=== PATIENT | female | born 1995 | race African-American/Black ===

== ENCOUNTER 2016-09-01 18:43 | Emergency (ER) | payer OTHER ==
[~2016-09-01] VITALS: Ht 165.1 cm; Wt 68.0 kg
[2016-09-01 19:00] VITALS: BP 107/59
== END 2016-09-02 00:21 | disposition left against medical advice (07) ==
LOC: ER 18:44
DX: R10.9 Unspecified abdominal pain (principal); R11.0 Nausea; R19.7 Diarrhea, unspecified; Z98.890 Other specified postprocedural states

== ENCOUNTER 2017-02-27 10:21 | Emergency (ER) | payer OTHER ==
[~2017-02-27] VITALS: Ht 167.6 cm; Wt 114.0 kg
[2017-02-27] MEDS ORDERED: KETOROLAC 60MG/2ML VIAL IM ONE (11:30)
[2017-02-27 14:12] VITALS: BP 109/61
== END 2017-02-27 14:30 | disposition home or self-care (01) ==
LOC: ER 10:31
DX: M54.5 Low back pain (principal)
CPT/HCPCS: 81025; 96372; 99283; J1885; Z7610

== ENCOUNTER 2017-12-27 21:43 | Emergency (ER) | payer OTHER ==
[~2017-12-27] VITALS: Ht 165.1 cm; Wt 91.0 kg
[2017-12-27] MEDS ORDERED: ACETAMINOPHEN 500MG TABLET PO ONE (23:00)
[2017-12-27] MEDS ORDERED: IBUPROFEN 600MG TABLET PO ONE (23:00)
[2017-12-27 23:16] VITALS: BP 119/67
== END 2017-12-27 23:17 | disposition home or self-care (01) ==
LOC: ER 21:43
DX: R51 Headache (principal); Z98.890 Other specified postprocedural states; V43.62XA Car passenger injured in collision with other type car in traffic accident, initial encounter; Y93.89 Activity, other specified; Y92.488 Other paved roadways as the place of occurrence of the external cause
CPT/HCPCS: 99283

== ENCOUNTER 2019-01-15 16:57 | Emergency (ER) | payer MEDICAID, OTHER ==
[~2019-01-15] VITALS: Ht 167.6 cm; Wt 143.0 kg
[2019-01-15] MEDS ORDERED: HYDROCODONE/ACETAMINOPHEN 5/325MG TABLET PO ONE (17:45)
[2019-01-15 19:17] VITALS: BP 150/69
== END 2019-01-15 19:18 | disposition home or self-care (01) ==
LOC: ER 16:57
DX: S93.692A Other sprain of left foot, initial encounter (principal); S90.32XA Contusion of left foot, initial encounter; X50.1XXA Overexertion from prolonged static or awkward postures, initial encounter; Y93.89 Activity, other specified; Y92.89 Other specified places as the place of occurrence of the external cause; Y99.8 Other external cause status; D64.9 Anemia, unspecified; Z98.890 Other specified postprocedural states
CPT/HCPCS: 73600; 73620; 99283

== ENCOUNTER 2019-02-14 19:41 | Emergency (ER) | payer MEDICAID ==
[~2019-02-14] VITALS: Ht 167.6 cm; Wt 142.3 kg
[2019-02-14] MEDS ORDERED: ACETAMINOPHEN 325MG TABLET PO STA (20:55)
[2019-02-14] MEDS ORDERED: KETOROLAC 30MG/ML VIAL IV STA (20:55)
[2019-02-14] MEDS ORDERED: SODIUM CHLORIDE 0.9% 1,000 ML IV ONE ×2 (20:55→22:18)
[2019-02-14 21:28] LABS: BASOPHILS % 0.2 % (0.0-2.0); CHLORIDE 104 mEq/L (98-107); EOSINOPHILS % 0.7 % (0.0-5.0); HEMATOCRIT. 36.3 % (36.0-48.0); HEMOGLOBIN. 11.4 g/dL (12.0-16.0); LYMPHOCYTES % 24.1 % (20.0-50.0); MEAN CORPUSCULAR HEMOGLOBIN 22.1 pg (28.0-32.0); MEAN CORPUSCULAR VOLUME 70.5 fL (81.0-99.0); MEAN PLATELET VOLUME 9.5 fl (7.4-10.4); MONOCYTES % 8.7 % (2.0-8.0); NEUTROPHILS % 66.3 % (40.0-76.0); PLATELET 233 x1000/uL (130-400); RED BLOOD CELL COUNT 5.15 mill/uL (4.2-5.4); RED CELL DISTRIBUTION WIDTH 17.6 % (11.6-14.6)
[2019-02-14 21:32] LABS: CLARITY URINE CLOUDY (CLEAR); COLOR URINE YELLOW (YELLOW); KETONES URINE TRACE (NEGATIVE); LEUKOCYTE ESTERASE URINE 1+ (NEGATIVE); NITRITE URINE NEGATIVE (NEGATIVE); OCCULT BLOOD URINE 2+ (NEGATIVE); PH URINE 6.5 (4.5-8.0); PROTEIN URINE 1+ (NEGATIVE); SPECIFIC GRAVITY URINE 1.019 (1.005-1.030); UROBILINOGEN URINE 0.2 E.U./dL (0.2-1.0)
[2019-02-15 03:07] VITALS: BP 131/74
[2019-02-15 09:17] LABS: *BARBITURATES SCREEN URINE NEGATIVE (NEGATIVE); *BENZODIAZEPINES SCREEN URINE NEGATIVE (NEGATIVE); *COCAINE SCREEN URINE NEGATIVE (NEGATIVE); METHADONE URINE SCREEN NEGATIVE (NEGATIVE)
[2019-02-15 09:18] LABS: *AMPHETAMINES SCREEN URINE NEGATIVE (NEGATIVE); OPIATES URINE SCREEN NEGATIVE (NEGATIVE); PHENCYCLIDINE URINE SCREEN NEGATIVE (NEGATIVE)
[2019-02-15 09:52] LABS: CANNABINOID URINE SCREEN PRESUMTIVE POSITIVE (NEGATIVE)
== END 2019-02-15 03:11 | disposition home or self-care (01) ==
LOC: ER 19:41
DX: B34.9 Viral infection, unspecified (principal); R00.0 Tachycardia, unspecified; R03.0 Elevated blood-pressure reading, without diagnosis of hypertension; F12.90 Cannabis use, unspecified, uncomplicated
CPT/HCPCS: 36415; 71045; 80053; 80305; 81003; 81025; 84443; 85025; 93005; 96374; 99284; J1885; J7030

== ENCOUNTER 2023-05-12 09:15 | Emergency (ER) | payer MEDICAID ==
[~2023-05-12] VITALS: Ht 170.2 cm; Wt 79.4 kg
[2023-05-12 09:41] VITALS: O2SAT 100
[2023-05-12 10:40] LABS: CLARITY URINE CLOUDY (CLEAR); COLOR URINE DARK YELLOW (YELLOW); GLUCOSE URINE NEGATIVE (NEGATIVE); KETONES URINE TRACE (NEGATIVE); LEUKOCYTE ESTERASE URINE 2+ (NEGATIVE); NITRITE URINE NEGATIVE (NEGATIVE); OCCULT BLOOD URINE NEGATIVE (NEGATIVE); PH URINE 5.5 (4.5-8.0); PROTEIN URINE TRACE (NEGATIVE); SPECIFIC GRAVITY URINE 1.029 (1.005-1.030)
[2023-05-12 11:13] LABS: BASOPHILS % 0.6 % (0.0-2.0); EOSINOPHILS % 1.4 % (0.0-5.0); HEMOGLOBIN. 11.4 g/dL (12.0-16.0); LYMPHOCYTES % 39.4 % (20.0-50.0); MEAN CORPUSCULAR HEMOGLOBIN 25.3 pg (28.0-32.0); MEAN CORPUSCULAR HGB CONC 30.9 g/dL (31.0-37.0); MEAN CORPUSCULAR VOLUME 81.9 fL (81.0-99.0); MEAN PLATELET VOLUME 9.1 fl (7.4-10.4); MONOCYTES % 7.5 % (2.0-8.0); NEUTROPHILS % 51.1 % (40.0-76.0); PLATELET 359 x1000/uL (130-400); RED BLOOD CELL COUNT 4.52 mill/uL (4.2-5.4); RED CELL DISTRIBUTION WIDTH 19.2 % (11.6-14.6); WHITE BLOOD COUNT 6.5 x1000/uL (4.5-11.0)
[2023-05-12 11:54] LABS: ALANINE AMINOTRANSFERASE 13 IU/L (10-49); ALBUMIN 4.3 g/dL (3.2-4.8); ASPARTATE AMINOTRANSFERASE 20 IU/L (<34); BILIRUBIN TOTAL 0.5 mg/dL (0.1-1.0); CALCIUM 9.4 mg/dL (8.7-10.4); CARBON DIOXIDE 26 mEq/L (21-32); CHLORIDE 106 mEq/L (98-107); CREATININE 0.7 mg/dL (0.6-1.0); GLUCOSE 76 mg/dL (70-105); POTASSIUM 4.1 mEq/L (3.5-5.1); PROTEIN TOTAL 7.8 g/dL (6.0-8.3); SODIUM 139 mEq/L (136-145); UREA NITROGEN BLOOD 11 mg/dL (9-23)
[2023-05-12 12:23] LABS: MUCUS URINE 4+ /lpf (< = 2+); SQUAMOUS EPITHELIAL CELL URINE 3+ /lpf (RARE/1+)
[2023-05-12 12:25] LABS: CALCIUM OXALATE CRYSTALS URINE 1+ /lpf; WBC URINE 25-50 /hpf (0-2)
[2023-05-12 12:26] LABS: BACTERIA URINE 2+; TRICHOMONAS URINE RARE
[2023-05-12] MEDS ORDERED: NITR100C MT (13:14)
[2023-05-12 14:19] VITALS: BP 108/77; PULSE 68; RESP 16; TEMP 98.7
== END 2023-05-12 14:20 | disposition home or self-care (01) ==
LOC: ER 09:15
DX: N39.0 Urinary tract infection, site not specified (principal); J06.9 Acute upper respiratory infection, unspecified; F12.10 Cannabis abuse, uncomplicated; Z98.890 Other specified postprocedural states; Z20.822 Contact with and (suspected) exposure to COVID-19
CPT/HCPCS: 36415; 80053; 81003; 81025; 85025; 87426; 87804; 99283

== ENCOUNTER 2023-08-25 08:42 | Emergency (ER) | payer MEDICAID ==
[~2023-08-25] VITALS: Ht 170.2 cm; Wt 81.0 kg
[~2023-08-25 08:42] MED LIST: NITR100C MT
[2023-08-25 09:06] VITALS: O2SAT 99
[2023-08-25 09:29] LABS: CARBON DIOXIDE 26 mEq/L (21-32); CHLORIDE 106 mEq/L (98-107); POTASSIUM 4.1 mEq/L (3.5-5.1); SODIUM 138 mEq/L (136-145)
[2023-08-25 09:30] LABS: BASOPHILS % 0.2 % (0.0-2.0); CALCIUM 8.8 mg/dL (8.7-10.4); DIFFERENTIAL COMMENT 0; EOSINOPHILS % 1.3 % (0.0-5.0); HEMATOCRIT. 31.7 % (36.0-48.0); HEMOGLOBIN. 10.1 g/dL (12.0-16.0); LYMPHOCYTES % 30.2 % (20.0-50.0); MEAN CORPUSCULAR HEMOGLOBIN 24.8 pg (28.0-32.0); MEAN CORPUSCULAR HGB CONC 31.8 g/dL (31.0-37.0); MEAN CORPUSCULAR VOLUME 78.2 fL (81.0-99.0); MEAN PLATELET VOLUME 9.4 fl (7.4-10.4); MONOCYTES % 5.7 % (2.0-8.0); NEUTROPHILS % 62.6 % (40.0-76.0); PLATELET 305 x1000/uL (130-400); RED BLOOD CELL COUNT 4.06 mill/uL (4.2-5.4); RED CELL DISTRIBUTION WIDTH 17.8 % (11.6-14.6)
[2023-08-25 09:35] LABS: CREATININE 0.7 mg/dL (0.6-1.0); GLUCOSE 90 mg/dL (70-105); UREA NITROGEN BLOOD 12 mg/dL (9-23)
[2023-08-25 09:37] LABS: ALANINE AMINOTRANSFERASE 9 IU/L (10-49); ALBUMIN 4.6 g/dL (3.2-4.8); ASPARTATE AMINOTRANSFERASE 17 IU/L (<34); BILIRUBIN DIRECT 0.2 mg/dL (<=3.0); BILIRUBIN TOTAL 0.6 mg/dL (0.1-1.0); PROTEIN TOTAL 7.7 g/dL (6.0-8.3)
[2023-08-25 09:39] LABS: CLARITY URINE CLEAR (CLEAR); COLOR URINE YELLOW (YELLOW); GLUCOSE URINE NEGATIVE (NEGATIVE); KETONES URINE NEGATIVE (NEGATIVE); LEUKOCYTE ESTERASE URINE 1+ (NEGATIVE); NITRITE URINE NEGATIVE (NEGATIVE); OCCULT BLOOD URINE NEGATIVE (NEGATIVE); PH URINE 6.5 (4.5-8.0); PROTEIN URINE NEGATIVE (NEGATIVE); SPECIFIC GRAVITY URINE 1.026 (1.005-1.030)
[2023-08-25 09:50] LABS: HCG SCREEN POSITIVE
[2023-08-25 10:02] LABS: MUCUS URINE 2+ /lpf (< = 2+); SQUAMOUS EPITHELIAL CELL URINE 2+ /lpf (RARE/1+)
[2023-08-25 10:04] LABS: BACTERIA URINE TRACE; CALCIUM OXALATE CRYSTALS URINE 1+ /lpf; RBC URINE 0-2 /hpf (0-2); WBC URINE 0-2 /hpf (0-2)
[2023-08-25] MEDS: ACETAMINOPHEN 325MG TABLET PO PRN (10:36)
[2023-08-25] MEDS ORDERED: TOPUD PO (11:16)
[2023-08-25 11:36] VITALS: BP 110/78; PULSE 79; RESP 16; TEMP 98.2
== END 2023-08-25 11:41 | disposition home or self-care (01) ==
LOC: ER 08:42
DX: O20.0 Threatened abortion (principal); F12.10 Cannabis abuse, uncomplicated; D64.9 Anemia, unspecified; Z98.890 Other specified postprocedural states; Z3A.01 Less than 8 weeks gestation of pregnancy
CPT/HCPCS: 36415; 76801; 80048; 80076; 81003; 84702; 84703; 85025; 86850; 86900; 99284

== ENCOUNTER 2024-01-02 12:33 | Emergency (ER) | payer MEDICAID ==
[~2024-01-02] VITALS: Ht 170.2 cm; Wt 86.5 kg
[~2024-01-02 12:33] MED LIST changes: +TOPUD PO
[2024-01-02 12:36] VITALS: TEMP 98.7; O2SAT 99
[2024-01-02 14:08] LABS: BASOPHILS % 0.4 % (0.0-2.0); DIFFERENTIAL COMMENT 0; EOSINOPHILS % 0.3 % (0.0-5.0); HEMATOCRIT. 29.9 % (36.0-48.0); HEMOGLOBIN. 9.5 g/dL (12.0-16.0); LYMPHOCYTES % 20.3 % (20.0-50.0); MEAN CORPUSCULAR HEMOGLOBIN 24.3 pg (28.0-32.0); MEAN CORPUSCULAR HGB CONC 31.6 g/dL (31.0-37.0); MEAN CORPUSCULAR VOLUME 76.8 fL (81.0-99.0); MEAN PLATELET VOLUME 8.9 fl (7.4-10.4); MONOCYTES % 6.1 % (2.0-8.0); NEUTROPHILS % 72.9 % (40.0-76.0); PLATELET 358 x1000/uL (130-400); RED BLOOD CELL COUNT 3.89 mill/uL (4.2-5.4); WHITE BLOOD COUNT 7.4 x1000/uL (4.5-11.0)
[2024-01-02 14:13] LABS: CHLORIDE 107 mEq/L (98-107); POTASSIUM 4.3 mEq/L (3.5-5.1); SODIUM 140 mEq/L (136-145)
[2024-01-02 14:14] LABS: CARBON DIOXIDE 27 mEq/L (21-32)
[2024-01-02 14:15] LABS: CALCIUM 9.2 mg/dL (8.7-10.4)
[2024-01-02 14:19] LABS: CREATININE 0.7 mg/dL (0.6-1.0); GLUCOSE 78 mg/dL (70-105)
[2024-01-02 14:20] LABS: UREA NITROGEN BLOOD 7 mg/dL (9-23)
[2024-01-02 14:21] LABS: ALANINE AMINOTRANSFERASE 12 IU/L (10-49); ALBUMIN 4.4 g/dL (3.2-4.8); ASPARTATE AMINOTRANSFERASE 18 IU/L (<34)
[2024-01-02 14:22] LABS: BILIRUBIN DIRECT 0.2 mg/dL (<=3.0); BILIRUBIN TOTAL 0.5 mg/dL (0.1-1.0); ETHANOL BLOOD < 10 mg/dL (<10); PROTEIN TOTAL 7.3 g/dL (6.0-8.3)
[2024-01-02 15:45] VITALS: BP 125/82; PULSE 85; RESP 15; O2SAT 98
== END 2024-01-02 15:50 | disposition home or self-care (01) ==
LOC: ER 13:06
DX: D64.9 Anemia, unspecified (principal); R53.1 Weakness; F15.10 Other stimulant abuse, uncomplicated
CPT/HCPCS: 36415; 80048; 80076; 80320; 85025; 99283; G0480

== ENCOUNTER 2024-01-15 00:34 | Emergency (ER) | payer MEDICAID ==
[~2024-01-15] VITALS: Ht 167.6 cm; Wt 84.0 kg
[2024-01-15 00:55] VITALS: O2SAT 100
[2024-01-15 02:00] LABS: CHLORIDE 108 mEq/L (98-107); SODIUM 139 mEq/L (136-145)
[2024-01-15 02:01] LABS: CARBON DIOXIDE 26 mEq/L (21-32)
[2024-01-15 02:02] LABS: CALCIUM 8.7 mg/dL (8.7-10.4)
[2024-01-15 02:06] LABS: CREATININE 0.7 mg/dL (0.6-1.0); GLUCOSE 89 mg/dL (70-105); UREA NITROGEN BLOOD 10 mg/dL (9-23)
[2024-01-15 02:08] LABS: ALANINE AMINOTRANSFERASE 10 IU/L (10-49); ALBUMIN 4.3 g/dL (3.2-4.8); ASPARTATE AMINOTRANSFERASE 19 IU/L (<34)
[2024-01-15 02:09] LABS: BILIRUBIN TOTAL 0.3 mg/dL (0.1-1.0); PROTEIN TOTAL 7.3 g/dL (6.0-8.3)
[2024-01-15 02:15] LABS: BILIRUBIN DIRECT < 0.1 mg/dL (<=3.0)
[2024-01-15 02:26] LABS: BASOPHILS % 0.3 % (0.0-2.0); DIFFERENTIAL COMMENT 0; EOSINOPHILS % 0.8 % (0.0-5.0); HEMOGLOBIN. 9.5 g/dL (12.0-16.0); LYMPHOCYTES % 17.8 % (20.0-50.0); MEAN CORPUSCULAR HEMOGLOBIN 23.5 pg (28.0-32.0); MEAN CORPUSCULAR HGB CONC 29.7 g/dL (31.0-37.0); MEAN CORPUSCULAR VOLUME 79.1 fL (81.0-99.0); MEAN PLATELET VOLUME 9.7 fl (7.4-10.4); MONOCYTES % 5.8 % (2.0-8.0); NEUTROPHILS % 75.3 % (40.0-76.0); PLATELET 348 x1000/uL (130-400); RED BLOOD CELL COUNT 4.04 mill/uL (4.2-5.4); RED CELL DISTRIBUTION WIDTH 18.7 % (11.6-14.6); WHITE BLOOD COUNT 11.3 x1000/uL (4.5-11.0)
[2024-01-15 02:56] LABS: HCG SCREEN NEGATIVE
[2024-01-15] MEDS: SODIUM CHLORIDE 0.9% 1,000 ML IV ONE (05:07)
[2024-01-15] MEDS: ONDANSETRON HCL 4MG/2ML INJ IV ONE (05:07)
[2024-01-15] MEDS: ACETAMINOPHEN 1000MG/100ML 100 ML IV ONE (05:07)
[2024-01-15] MEDS: MAGNESIUM/ALUMINUM HYDROXIDE/SIMETHICONE 30ML UDC PO ONE (05:08)
[2024-01-15] MEDS ORDERED: ONDA4TAB50 MT (05:44)
[2024-01-15] MEDS ORDERED: ACET-2708 MT (05:44)
[2024-01-15] MEDS ORDERED: MAG355OR21 MT (05:44)
[2024-01-15 05:56] VITALS: BP 112/70; PULSE 81; RESP 16; TEMP 36.44736; O2SAT 100
== END 2024-01-15 06:13 | disposition home or self-care (01) ==
LOC: ER 00:34
DX: B34.9 Viral infection, unspecified (principal); D64.9 Anemia, unspecified; F15.10 Other stimulant abuse, uncomplicated; Z00.00 Encounter for general adult medical examination without abnormal findings; Z79.899 Other long term (current) drug therapy; Z98.890 Other specified postprocedural states
CPT/HCPCS: 80076; 80048; 84703; 85025; 36415; 96365; 96375; 99284; J2405; J7030; Z7610 ×2; J0131

== ENCOUNTER 2024-02-07 12:40 | Emergency (ER) | payer MEDICAID ==
[~2024-02-07] VITALS: Ht 170.2 cm; Wt 81.0 kg
[~2024-02-07 12:40] MED LIST changes: +ACET-2708 MT; +MAG355OR21 MT; +ONDA4TAB50 MT
[2024-02-07 12:58] VITALS: TEMP 98.1; O2SAT 99
[2024-02-07 15:40] LABS: HEMATOCRIT 32.8 % (36.0-48.0); HEMOGLOBIN 10.2 g/dL (12.0-16.0); MEAN CORPUSCULAR HEMOGLOBIN 24.7 pg (28.0-32.0); MEAN CORPUSCULAR VOLUME 79.7 fL (81.0-99.0); PLATELET 349 x1000/uL (130-400); RED BLOOD CELL COUNT 4.12 mill/uL (4.2-5.4); RED CELL DISTRIBUTION WIDTH 19.7 % (11.6-14.6); WHITE BLOOD COUNT 6.4 x1000/uL (4.5-11.0)
[2024-02-07 15:48] LABS: CHLORIDE 111 mEq/L (98-107); POTASSIUM 4.3 mEq/L (3.5-5.1); SODIUM 142 mEq/L (136-145)
[2024-02-07 15:49] LABS: CARBON DIOXIDE 27 mEq/L (21-32)
[2024-02-07 15:54] LABS: CREATININE 0.7 mg/dL (0.6-1.0); GLUCOSE 79 mg/dL (70-105); HCG SCREEN NEGATIVE; UREA NITROGEN BLOOD 12 mg/dL (9-23)
[2024-02-07 16:19] LABS: TROPONIN I HIGH SENSITIVITY < 4 ng/L (3.0-34)
[2024-02-07 16:54] VITALS: BP 118/62; PULSE 62; RESP 16; O2SAT 98
== END 2024-02-07 16:54 | disposition home or self-care (01) ==
LOC: ER 12:40
DX: R07.9 Chest pain, unspecified (principal); F15.90 Other stimulant use, unspecified, uncomplicated; D64.9 Anemia, unspecified; Z98.890 Other specified postprocedural states; Z79.899 Other long term (current) drug therapy
CPT/HCPCS: 36415; 71045; 80048; 84484; 84703; 85027; 93005; 99285

== ENCOUNTER 2024-03-21 11:30 | Emergency (ER) | payer MEDICAID ==
[~2024-03-21] VITALS: Ht 167.6 cm; Wt 90.0 kg
[2024-03-21 11:35] VITALS: BP 136/84; TEMP 98.7; O2SAT 99
[2024-03-21 11:55] VITALS: PULSE 83; RESP 18; O2SAT 100
[2024-03-21] MEDS ORDERED: ONDANSETRON 4MG ODT PO STA (12:02)
[2024-03-21] MEDS ORDERED: PANTOPRAZOLE 40MG DR TABLET PO ONE (12:30)
[2024-03-21] MEDS ORDERED: MAGNESIUM/ALUMINUM HYDROXIDE/SIMETHICONE 30ML UDC PO ONE ×2 (12:30→13:45)
[2024-03-21 12:44] LABS: BASOPHILS % 0.4 % (0.0-2.0); EOSINOPHILS % 0.8 % (0.0-5.0); HEMOGLOBIN. 10.9 g/dL (12.0-16.0); LYMPHOCYTES % 28.1 % (20.0-50.0); MEAN CORPUSCULAR HEMOGLOBIN 25.1 pg (28.0-32.0); MEAN CORPUSCULAR HGB CONC 31.1 g/dL (31.0-37.0); MEAN CORPUSCULAR VOLUME 80.7 fL (81.0-99.0); MEAN PLATELET VOLUME 9.5 fl (7.4-10.4); MONOCYTES % 6.6 % (2.0-8.0); NEUTROPHILS % 64.1 % (40.0-76.0); PLATELET 325 x1000/uL (130-400); RED BLOOD CELL COUNT 4.34 mill/uL (4.2-5.4); RED CELL DISTRIBUTION WIDTH 18.3 % (11.6-14.6); WHITE BLOOD COUNT 9.8 x1000/uL (4.5-11.0)
[2024-03-21 12:50] LABS: CHLORIDE 107 mEq/L (98-107); POTASSIUM 4.6 mEq/L (3.5-5.1); SODIUM 142 mEq/L (136-145)
[2024-03-21 12:51] LABS: CALCIUM 9.5 mg/dL (8.7-10.4); CARBON DIOXIDE 26 mEq/L (21-32)
[2024-03-21 12:56] LABS: CREATININE 0.8 mg/dL (0.6-1.0); GLUCOSE 97 mg/dL (70-105); UREA NITROGEN BLOOD 12 mg/dL (9-23)
[2024-03-21 12:58] LABS: CLARITY URINE CLEAR (CLEAR); COLOR URINE DARK YELLOW (YELLOW); GLUCOSE URINE NEGATIVE (NEGATIVE); KETONES URINE TRACE (NEGATIVE); LEUKOCYTE ESTERASE URINE NEGATIVE (NEGATIVE); NITRITE URINE NEGATIVE (NEGATIVE); OCCULT BLOOD URINE NEGATIVE (NEGATIVE); PH URINE 6.5 (4.5-8.0); PROTEIN URINE NEGATIVE (NEGATIVE); SPECIFIC GRAVITY URINE 1.022 (1.005-1.030)
[2024-03-21 13:04] LABS: PROTHROMBIN TIME 11.4 sec (9.6-11.0)
[2024-03-21] MEDS: MAGNESIUM/ALUMINUM HYDROXIDE/SIMETHICONE 30ML UDC PO NR (14:09)
[2024-03-21] MEDS: PANTOPRAZOLE 40MG DR TABLET PO NR (14:09)
[2024-03-21] MEDS: ONDANSETRON 4MG ODT PO NR (14:09)
[2024-03-21] MEDS ORDERED: OMEP40CA20 MT (14:13)
== END 2024-03-21 14:25 | disposition home or self-care (01) ==
LOC: ER 11:30
DX: K92.0 Hematemesis (principal); D64.9 Anemia, unspecified; F15.90 Other stimulant use, unspecified, uncomplicated; Z90.3 Acquired absence of stomach [part of]; Z98.890 Other specified postprocedural states
CPT/HCPCS: 99284; 74176; 80048; 81003; 81025; 85025; 85610; 36415; 93005; Q0162

== ENCOUNTER 2024-06-23 20:40 | Emergency (ER) | payer MEDICAID ==
[~2024-06-23] VITALS: Ht 167.6 cm; Wt 93.0 kg
[~2024-06-23 20:40] MED LIST changes: +OMEP40CA20 MT
[2024-06-23 20:47] VITALS: O2SAT 98
[2024-06-23] MEDS ORDERED: ACETAMINOPHEN 325MG TABLET PO PRN (21:15)
[2024-06-23 21:42] LABS: BASOPHILS % 0.4 % (0.0-2.0); DIFFERENTIAL COMMENT 0; EOSINOPHILS % 1.1 % (0.0-5.0); LYMPHOCYTES % 32.9 % (20.0-50.0); MEAN CORPUSCULAR HGB CONC 31.3 g/dL (31.0-37.0); MEAN CORPUSCULAR VOLUME 79.9 fL (81.0-99.0); MEAN PLATELET VOLUME 9.3 fl (7.4-10.4); MONOCYTES % 6.4 % (2.0-8.0); NEUTROPHILS % 59.2 % (40.0-76.0); PLATELET 317 x1000/uL (130-400); RED BLOOD CELL COUNT 4.01 mill/uL (4.2-5.4); RED CELL DISTRIBUTION WIDTH 17.4 % (11.6-14.6); WHITE BLOOD COUNT 8.1 x1000/uL (4.5-11.0)
[2024-06-23 21:47] LABS: CHLORIDE 109 mEq/L (98-107); POTASSIUM 4.1 mEq/L (3.5-5.1); SODIUM 144 mEq/L (136-145)
[2024-06-23 21:48] LABS: CARBON DIOXIDE 27 mEq/L (21-32)
[2024-06-23 21:49] LABS: CALCIUM 9.2 mg/dL (8.7-10.4)
[2024-06-23 21:53] LABS: CREATININE 0.7 mg/dL (0.6-1.0); GLUCOSE 86 mg/dL (70-105)
[2024-06-23 21:54] LABS: B-HCG QUANTITATIVE 7 mIU/mL (<3); UREA NITROGEN BLOOD 13 mg/dL (9-23)
[2024-06-23 21:55] LABS: ALANINE AMINOTRANSFERASE 10 IU/L (10-49); ALBUMIN 4.1 g/dL (3.2-4.8); ASPARTATE AMINOTRANSFERASE 17 IU/L (<34)
[2024-06-23 21:56] LABS: BILIRUBIN TOTAL 0.3 mg/dL (0.1-1.0)
[2024-06-23 21:58] LABS: BILIRUBIN DIRECT < 0.1 mg/dL (<=3.0)
[2024-06-23 23:47] LABS: CLARITY URINE CLEAR (CLEAR); COLOR URINE YELLOW (YELLOW); GLUCOSE URINE NEGATIVE (NEGATIVE); KETONES URINE NEGATIVE (NEGATIVE); LEUKOCYTE ESTERASE URINE NEGATIVE (NEGATIVE); NITRITE URINE NEGATIVE (NEGATIVE); OCCULT BLOOD URINE 1+ (NEGATIVE); PROTEIN URINE NEGATIVE (NEGATIVE)
[2024-06-24 00:27] LABS: WBC URINE 0-2 /hpf (0-2)
[2024-06-24 00:28] LABS: BACTERIA URINE NONE SEEN; RBC URINE 0-2 /hpf (0-2); SQUAMOUS EPITHELIAL CELL URINE FEW /lpf (RARE/1+)
[2024-06-24 00:45] VITALS: BP 121/70; PULSE 74; RESP 18; TEMP 36.8; O2SAT 100
== END 2024-06-24 00:45 | disposition home or self-care (01) ==
LOC: ER 20:40
DX: O20.9 Hemorrhage in early pregnancy, unspecified (principal); O34.41 Maternal care for other abnormalities of cervix, first trimester; N89.8 Other specified noninflammatory disorders of vagina; Z98.890 Other specified postprocedural states; Z79.899 Other long term (current) drug therapy; Z3A.01 Less than 8 weeks gestation of pregnancy
CPT/HCPCS: 36415; 76801; 80048; 80076; 81003; 84702; 85025; 86850; 86900; 99284

== ENCOUNTER 2024-09-08 11:37 | Emergency (ER) | payer MEDICAID ==
[~2024-09-08] VITALS: Ht 167.6 cm; Wt 100.0 kg
[2024-09-08 11:39] VITALS: O2SAT 98
[2024-09-08 11:40] VITALS: BP 134/75; PULSE 89; RESP 18; TEMP 36.9; O2SAT 99
[2024-09-08 12:06] LABS: BASOPHILS % 0.4 % (0.0-2.0); DIFFERENTIAL COMMENT 0; EOSINOPHILS % 0.2 % (0.0-5.0); HEMATOCRIT. 33.8 % (36.0-48.0); LYMPHOCYTES % 17.4 % (20.0-50.0); MEAN CORPUSCULAR HEMOGLOBIN 24.8 pg (28.0-32.0); MEAN CORPUSCULAR HGB CONC 32.4 g/dL (31.0-37.0); MEAN CORPUSCULAR VOLUME 76.6 fL (81.0-99.0); MEAN PLATELET VOLUME 8.9 fl (7.4-10.4); MONOCYTES % 6.7 % (2.0-8.0); NEUTROPHILS % 75.3 % (40.0-76.0); PLATELET 365 x1000/uL (130-400); RED BLOOD CELL COUNT 4.41 mill/uL (4.2-5.4); RED CELL DISTRIBUTION WIDTH 17.5 % (11.6-14.6); WHITE BLOOD COUNT 9.2 x1000/uL (4.5-11.0)
[2024-09-08 12:34] LABS: CHLORIDE 107 mEq/L (98-107); POTASSIUM 4.4 mEq/L (3.5-5.1); SODIUM 141 mEq/L (136-145)
[2024-09-08 12:35] LABS: CALCIUM 9.2 mg/dL (8.7-10.4); CARBON DIOXIDE 25 mEq/L (21-32)
[2024-09-08 12:40] LABS: CREATININE 0.8 mg/dL (0.6-1.0); GLUCOSE 88 mg/dL (70-105); UREA NITROGEN BLOOD 7 mg/dL (9-23)
[2024-09-08 14:07] LABS: CLARITY URINE CLEAR (CLEAR); COLOR URINE YELLOW (YELLOW); GLUCOSE URINE NEGATIVE (NEGATIVE); KETONES URINE NEGATIVE (NEGATIVE); LEUKOCYTE ESTERASE URINE NEGATIVE (NEGATIVE); NITRITE URINE NEGATIVE (NEGATIVE); OCCULT BLOOD URINE NEGATIVE (NEGATIVE); PROTEIN URINE NEGATIVE (NEGATIVE); SPECIFIC GRAVITY URINE 1.019 (1.005-1.030)
[2024-09-08] MEDS: ONDANSETRON 4MG ODT PO ONE (14:43)
[2024-09-08] MEDS: ACETAMINOPHEN 325MG TABLET PO ONE (14:43)
[2024-09-08] MEDS ORDERED: TOPUD PO (15:18)
[2024-09-08] MEDS ORDERED: MAG355OR21 MT (15:18)
[2024-09-08] MEDS ORDERED: OMEP40CA20 MT (15:18)
[2024-09-08] MEDS ORDERED: ONDA-239 PO (15:18)
== END 2024-09-08 15:29 | disposition left against medical advice (07) ==
LOC: ER 11:38
DX: R11.2 Nausea with vomiting, unspecified (principal); Z79.899 Other long term (current) drug therapy; Z87.19 Personal history of other diseases of the digestive system; Z98.890 Other specified postprocedural states
CPT/HCPCS: 99283; 80048; 81003; 81025; 83690; 85025; 36415; Q0162

== ENCOUNTER 2024-11-22 02:39 | Emergency (ER) | payer MEDICAID ==
[~2024-11-22] VITALS: Ht 172.7 cm; Wt 91.0 kg
[~2024-11-22 02:39] MED LIST changes: +ONDA-239 PO
[2024-11-22 02:41] VITALS: TEMP 36.8; O2SAT 99
[2024-11-22] MEDS ORDERED: ACETAMINOPHEN 1000MG/100ML 100 ML IV ONE (03:15)
[2024-11-22 03:29] LABS: BASOPHILS % 0.7 % (0.0-2.0); EOSINOPHILS % 0.1 % (0.0-5.0); HEMATOCRIT. 33.5 % (36.0-48.0); HEMOGLOBIN. 10.5 g/dL (12.0-16.0); LYMPHOCYTES % 21.9 % (20.0-50.0); MEAN PLATELET VOLUME 10.1 fl (7.4-10.4); MONOCYTES % 4.9 % (2.0-8.0); NEUTROPHILS % 72.4 % (40.0-76.0); PLATELET 323 x1000/uL (130-400); RED BLOOD CELL COUNT 4.28 mill/uL (4.2-5.4); RED CELL DISTRIBUTION WIDTH 18.0 % (11.6-14.6)
[2024-11-22] MEDS: SODIUM CHLORIDE 0.9% 1,000 ML IV ONE (03:40)
[2024-11-22] MEDS: ONDANSETRON HCL 4MG/2ML INJ IV ONE (03:41)
[2024-11-22] MEDS: PANTOPRAZOLE SODIUM 40 MG/VIAL IV ONE (03:41)
[2024-11-22] MEDS: MAGNESIUM/ALUMINUM HYDROXIDE/SIMETHICONE 30ML UDC PO ONE (03:41)
[2024-11-22 03:50] LABS: HCG SCREEN NEGATIVE
[2024-11-22] MEDS: ACETAMINOPHEN 325MG TABLET PO ONE (03:53)
[2024-11-22] MEDS: VISCOUS LIDOCAINE 2% 15 ML UDC MM ONE (03:53)
[2024-11-22 04:06] LABS: CREATININE 0.8 mg/dL (0.6-1.0)
[2024-11-22 04:07] LABS: ETHANOL BLOOD < 10 mg/dL (<10); UREA NITROGEN BLOOD 8 mg/dL (9-23)
[2024-11-22 04:08] LABS: ASPARTATE AMINOTRANSFERASE 38 IU/L (<34)
[2024-11-22 04:09] LABS: BILIRUBIN DIRECT 0.1 mg/dL (<=3.0); BILIRUBIN TOTAL 0.4 mg/dL (0.1-1.0); PROTEIN TOTAL 8.2 g/dL (6.0-8.3)
[2024-11-22] MEDS ORDERED: IOHEXOL-300 100 ML BOTTLE ONE (04:58)
[2024-11-22 05:30] LABS: TROPONIN I HIGH SENSITIVITY 4 ng/L (3.0-34)
[2024-11-22 06:01] LABS: INR 1.1
[2024-11-22] MEDS ORDERED: PROT40 MT (06:21)
[2024-11-22] MEDS ORDERED: MAG355OR21 MT (06:21)
[2024-11-22] MEDS ORDERED: HYDROCODONE/ACETAMINOPHEN 5/325MG TABLET PO ONE (06:30)
[2024-11-22] MEDS ORDERED: ONDANSETRON 4MG ODT PO ONE (06:30)
[2024-11-22 06:43] VITALS: BP 116/71; PULSE 85; RESP 16; O2SAT 98
== END 2024-11-22 06:46 | disposition home or self-care (01) ==
LOC: ER 02:39 → CMPBEDREQ 19:23
DX: R10.13 Epigastric pain (principal); F14.10 Cocaine abuse, uncomplicated; D64.9 Anemia, unspecified; R06.02 Shortness of breath; Z00.00 Encounter for general adult medical examination without abnormal findings; Z79.899 Other long term (current) drug therapy; Z98.84 Bariatric surgery status; Z87.19 Personal history of other diseases of the digestive system
CPT/HCPCS: 80076; 80048; 80320; 84703; 83880; 83690; 85025; 85379; 85610; 85730; 84484; 36415; 71045; 74177; 93005; 96361; 96374; 96375; 99285; Q9967; J2405; J2470; J7030; A4606; G0480; J0131

== ENCOUNTER 2024-12-03 09:42 | Emergency (ER) | payer MEDICAID ==
[~2024-12-03] VITALS: Ht 167.6 cm; Wt 99.0 kg
[~2024-12-03 09:42] MED LIST changes: +PROT40 MT
[2024-12-03 10:04] VITALS: O2SAT 96
[2024-12-03 11:01] LABS: BASOPHILS % 0.4 % (0.0-2.0); EOSINOPHILS % 0.1 % (0.0-5.0); HEMATOCRIT. 33.0 % (36.0-48.0); HEMOGLOBIN. 10.4 g/dL (12.0-16.0); LYMPHOCYTES % 28.2 % (20.0-50.0); MEAN PLATELET VOLUME 9.1 fl (7.4-10.4); MONOCYTES % 5.3 % (2.0-8.0); NEUTROPHILS % 66.0 % (40.0-76.0); PLATELET 362 x1000/uL (130-400); RED BLOOD CELL COUNT 4.38 mill/uL (4.2-5.4); RED CELL DISTRIBUTION WIDTH 17.2 % (11.6-14.6)
[2024-12-03 11:20] LABS: CREATININE 0.7 mg/dL (0.6-1.0); UREA NITROGEN BLOOD 6 mg/dL (9-23)
[2024-12-03 11:21] LABS: TROPONIN I HIGH SENSITIVITY < 4 ng/L (3.0-34)
[2024-12-03 11:22] LABS: ASPARTATE AMINOTRANSFERASE 15 IU/L (<34); BILIRUBIN TOTAL 0.4 mg/dL (0.1-1.0)
[2024-12-03 11:23] LABS: PROTEIN TOTAL 7.8 g/dL (6.0-8.3)
[2024-12-03] MEDS: KETOROLAC 15MG/ML VIAL IM ONE (11:32)
[2024-12-03] MEDS: ONDANSETRON 4MG ODT PO ONE (11:33)
[2024-12-03 11:34] VITALS: TEMP 36.8; O2SAT 98
[2024-12-03 11:34] LABS: ASPARTATE AMINOTRANSFERASE 16 IU/L (<34); BILIRUBIN DIRECT < 0.1 mg/dL (<=3.0); BILIRUBIN TOTAL 0.3 mg/dL (0.1-1.0)
[2024-12-03 11:35] LABS: PROTEIN TOTAL 7.4 g/dL (6.0-8.3)
[2024-12-03 12:08] LABS: HCG SCREEN NEGATIVE
[2024-12-03 13:00] LABS: CLARITY URINE CLEAR (CLEAR); COLOR URINE YELLOW (YELLOW); GLUCOSE URINE NEGATIVE (NEGATIVE); KETONES URINE NEGATIVE (NEGATIVE); LEUKOCYTE ESTERASE URINE NEGATIVE (NEGATIVE); NITRITE URINE NEGATIVE (NEGATIVE); OCCULT BLOOD URINE NEGATIVE (NEGATIVE); PH URINE 7.5 (4.5-8.0); PROTEIN URINE NEGATIVE (NEGATIVE); SPECIFIC GRAVITY URINE 1.008 (1.005-1.030); UROBILINOGEN URINE 0.2 E.U./dL (0.2-1.0)
[2024-12-03 13:01] VITALS: BP 126/70; PULSE 80; RESP 20; TEMP 98.3
[2024-12-03] MEDS ORDERED: TOPUD MT (13:24)
[2024-12-03] MEDS ORDERED: PROT40 MT (13:24)
[2024-12-03] MEDS ORDERED: ONDA4TAB50 MT (13:24)
[2024-12-03 13:54] LABS: INFLUENZA TYPE A Presumptive Negative (Pres. Neg.)
[2024-12-03 13:55] LABS: INFLUENZA TYPE B Presumptive Negative (Pres. Neg.)
== END 2024-12-03 13:45 | disposition home or self-care (01) ==
LOC: ER 09:42 → CANBEDREQ 13:29 → ER 13:45
DX: R10.9 Unspecified abdominal pain (principal); R51.9 Headache, unspecified; R07.89 Other chest pain; F10.90 Alcohol use, unspecified, uncomplicated; Z79.899 Other long term (current) drug therapy; Z87.19 Personal history of other diseases of the digestive system; Z98.84 Bariatric surgery status; Z20.822 Contact with and (suspected) exposure to COVID-19; Y90.9 Presence of alcohol in blood, level not specified
CPT/HCPCS: 80076; 80053; 81003; 81025; 84703; 83690; 85025; 84484; 87804 ×2; 36415; 71045; 74176; 93005; 96372; 99285; 87426; Q0162; J1885; Z7610

== ENCOUNTER 2024-12-10 05:26 | Emergency (ER) | payer MEDICAID ==
[~2024-12-10] VITALS: Ht 167.6 cm; Wt 99.2 kg
[~2024-12-10 05:26] MED LIST changes: +TOPUD MT
[2024-12-10 05:32] VITALS: O2SAT 100
[2024-12-10 06:30] LABS: BASOPHILS % 0.6 % (0.0-2.0); EOSINOPHILS % 1.1 % (0.0-5.0); HEMATOCRIT. 32.7 % (36.0-48.0); HEMOGLOBIN. 10.1 g/dL (12.0-16.0); LYMPHOCYTES % 32.8 % (20.0-50.0); MEAN PLATELET VOLUME 9.6 fl (7.4-10.4); MONOCYTES % 7.3 % (2.0-8.0); NEUTROPHILS % 58.2 % (40.0-76.0); PLATELET 360 x1000/uL (130-400); RED BLOOD CELL COUNT 4.36 mill/uL (4.2-5.4); RED CELL DISTRIBUTION WIDTH 17.3 % (11.6-14.6)
[2024-12-10] MEDS: SODIUM CHLORIDE 0.9% 1,000 ML IV ONE (06:35)
[2024-12-10] MEDS: ONDANSETRON HCL 4MG/2ML INJ IV ONE (06:36)
[2024-12-10] MEDS: MORPHINE SULFATE 4 MG/ML INJ (FOR IV/IM USE) IV ONE (06:37)
[2024-12-10 06:39] LABS: CREATININE 0.8 mg/dL (0.6-1.0)
[2024-12-10 06:40] LABS: UREA NITROGEN BLOOD 12 mg/dL (9-23)
[2024-12-10 06:41] LABS: HCG SCREEN NEGATIVE; TROPONIN I HIGH SENSITIVITY 16 ng/L (3.0-34)
[2024-12-10] MEDS ORDERED: ONDA4TAB50 MT (07:11)
[2024-12-10] MEDS ORDERED: POLY17PO3 MT (07:11)
[2024-12-10 08:36] VITALS: BP 113/54; PULSE 72; RESP 16; TEMP 36.6; O2SAT 99
== END 2024-12-10 08:39 | disposition home or self-care (01) ==
LOC: ER 05:26
DX: K29.70 Gastritis, unspecified, without bleeding (principal); F14.90 Cocaine use, unspecified, uncomplicated; F41.9 Anxiety disorder, unspecified; F32.A Depression, unspecified; Z98.890 Other specified postprocedural states; Z79.899 Other long term (current) drug therapy
CPT/HCPCS: 80048; 81025; 84703; 85025; 85379; 84484; 36415; 71045; 93005; 96361; 96374; 96375; 99285; J2405; J2270; J7030; Z7610

== ENCOUNTER 2025-02-03 00:05 | Emergency (ER) | payer MEDICAID ==
[~2025-02-03] VITALS: Ht 167.6 cm; Wt 102.0 kg
[~2025-02-03 00:05] MED LIST changes: +POLY17PO3 MT
[2025-02-03 00:29] VITALS: TEMP 36.8; O2SAT 100
[2025-02-03] MEDS: ONDANSETRON 4MG ODT PO ONE (01:33)
[2025-02-03] MEDS: ACETAMINOPHEN 325MG TABLET PO ONE (01:34)
[2025-02-03 01:36] LABS: BASOPHILS % 0.3 % (0.0-2.0); EOSINOPHILS % 1.2 % (0.0-5.0); HEMATOCRIT. 31.4 % (36.0-48.0); HEMOGLOBIN. 9.7 g/dL (12.0-16.0); LYMPHOCYTES % 25.5 % (20.0-50.0); MEAN PLATELET VOLUME 9.2 fl (7.4-10.4); MONOCYTES % 8.1 % (2.0-8.0); NEUTROPHILS % 64.9 % (40.0-76.0); PLATELET 359 x1000/uL (130-400); RED BLOOD CELL COUNT 4.18 mill/uL (4.2-5.4); RED CELL DISTRIBUTION WIDTH 17.1 % (11.6-14.6)
[2025-02-03 01:49] LABS: CLARITY URINE CLEAR (CLEAR); COLOR URINE YELLOW (YELLOW); GLUCOSE URINE NEGATIVE (NEGATIVE); KETONES URINE TRACE (NEGATIVE); LEUKOCYTE ESTERASE URINE NEGATIVE (NEGATIVE); NITRITE URINE NEGATIVE (NEGATIVE); OCCULT BLOOD URINE 2+ (NEGATIVE); PH URINE 6.0 (4.5-8.0); PROTEIN URINE TRACE (NEGATIVE); SPECIFIC GRAVITY URINE 1.025 (1.005-1.030); UROBILINOGEN URINE 0.2 E.U./dL (0.2-1.0)
[2025-02-03 01:52] LABS: CREATININE 0.7 mg/dL (0.6-1.0); UREA NITROGEN BLOOD 12 mg/dL (9-23)
[2025-02-03 01:54] LABS: ASPARTATE AMINOTRANSFERASE 16 IU/L (<34); BILIRUBIN DIRECT < 0.1 mg/dL (<=3.0); BILIRUBIN TOTAL 0.4 mg/dL (0.1-1.0)
[2025-02-03 01:55] LABS: PROTEIN TOTAL 7.3 g/dL (6.0-8.3)
[2025-02-03] MEDS ORDERED: FERR236T3 MT (02:42)
[2025-02-03] MEDS ORDERED: PANT20TA17 MT (02:42)
[2025-02-03 02:56] LABS: HCG SCREEN NEGATIVE
[2025-02-03] MEDS ORDERED: MAG-55 MT (03:14)
[2025-02-03 03:24] VITALS: BP 111/54; PULSE 67; RESP 18; O2SAT 100
[2025-02-03 03:41] LABS: SQUAMOUS EPITHELIAL CELL URINE FEW /lpf (RARE/1+)
[2025-02-03 03:43] LABS: BACTERIA URINE NONE SEEN; WBC URINE 0-2 /hpf (0-2)
== END 2025-02-03 03:28 | disposition home or self-care (01) ==
LOC: ER 00:18
DX: R10.13 Epigastric pain (principal); R11.2 Nausea with vomiting, unspecified; Z98.890 Other specified postprocedural states; Z79.899 Other long term (current) drug therapy
CPT/HCPCS: 99284; 76705; 80076; 80048; 81003; 81025; 84703; 83690; 85025; 36415; Q0162

== ENCOUNTER 2025-04-12 21:50 | Emergency (ER) | payer MEDICAID ==
[~2025-04-12] VITALS: Ht 167.6 cm; Wt 102.0 kg
[~2025-04-12 21:50] MED LIST changes: +FERR236T3 MT; +MAG-55 MT; +PANT20TA17 MT
[2025-04-12 21:57] VITALS: O2SAT 99
[2025-04-12 22:38] LABS: CLARITY URINE CLEAR (CLEAR); COLOR URINE YELLOW (YELLOW); GLUCOSE URINE NEGATIVE (NEGATIVE); KETONES URINE TRACE (NEGATIVE); LEUKOCYTE ESTERASE URINE 2+ (NEGATIVE); NITRITE URINE NEGATIVE (NEGATIVE); OCCULT BLOOD URINE NEGATIVE (NEGATIVE); PH URINE 7.0 (4.5-8.0); PROTEIN URINE 1+ (NEGATIVE); SPECIFIC GRAVITY URINE 1.034 (1.005-1.030); UROBILINOGEN URINE 1.0 E.U./dL (0.2-1.0)
[2025-04-12 22:51] LABS: BACTERIA URINE 1+; RBC URINE 0-2 /hpf (0-2); SQUAMOUS EPITHELIAL CELL URINE FEW /lpf (RARE/1+)
[2025-04-13 00:14] LABS: BASOPHILS % 0.3 % (0.0-2.0); EOSINOPHILS % 1.0 % (0.0-5.0); HEMATOCRIT. 34.6 % (36.0-48.0); HEMOGLOBIN. 10.5 g/dL (12.0-16.0); LYMPHOCYTES % 27.7 % (20.0-50.0); MEAN PLATELET VOLUME 9.6 fl (7.4-10.4); MONOCYTES % 6.3 % (2.0-8.0); NEUTROPHILS % 64.7 % (40.0-76.0); PLATELET 350 x1000/uL (130-400); RED BLOOD CELL COUNT 4.54 mill/uL (4.2-5.4); RED CELL DISTRIBUTION WIDTH 17.5 % (11.6-14.6)
[2025-04-13] MEDS: ONDANSETRON HCL 4MG/2ML INJ IV ONE (00:25)
[2025-04-13] MEDS: FAMOTIDINE 20MG/2ML VIAL IV ONE (00:25)
[2025-04-13] MEDS: KETOROLAC 15MG/ML VIAL IV ONE (00:26)
[2025-04-13 00:29] LABS: CREATININE 0.8 mg/dL (0.6-1.0); UREA NITROGEN BLOOD 10 mg/dL (9-23)
[2025-04-13 00:30] LABS: PROTEIN TOTAL 7.6 g/dL (6.0-8.3); TROPONIN I HIGH SENSITIVITY < 4 ng/L (3.0-34)
[2025-04-13 00:31] LABS: ASPARTATE AMINOTRANSFERASE 18 IU/L (<34); BILIRUBIN DIRECT < 0.1 mg/dL (<=3.0); BILIRUBIN TOTAL 0.3 mg/dL (0.1-1.0)
[2025-04-13] MEDS ORDERED: MAG-55 MT (00:47)
[2025-04-13] MEDS ORDERED: SULF1TAB48 MT (00:47)
[2025-04-13] MEDS: KETOROLAC 15MG/ML VIAL IV NR (00:53)
[2025-04-13] MEDS: ONDANSETRON HCL 4MG/2ML INJ IV NR (00:53)
[2025-04-13] MEDS: FAMOTIDINE 20MG/2ML VIAL IV NR (00:53)
[2025-04-13 01:38] VITALS: BP 124/70; PULSE 85; RESP 20; TEMP 36.8; O2SAT 100
== END 2025-04-13 01:41 | disposition home or self-care (01) ==
LOC: ER 21:50
DX: N39.0 Urinary tract infection, site not specified (principal); R07.89 Other chest pain; R10.12 Left upper quadrant pain; Z79.899 Other long term (current) drug therapy; Z98.84 Bariatric surgery status; Z98.891 History of uterine scar from previous surgery
CPT/HCPCS: 99285; 74176; 71045; 80076; 80048; 81003; 81025; 83690; 85025; 84484; 36415; 93005; 96374; 96375; J1885; J1308; J2405